=== PATIENT | female | born 1965 | race Two or more races ===

== ENCOUNTER 2022-05-30 11:05 | Emergency (ER) | payer OTHER ==
[~2022-05-30] VITALS: Ht 165.1 cm; Wt 98.9 kg
[2022-05-30] MEDS ORDERED: CYCLOBENZAPRINE10 MG PO (15:37)
[2022-05-30] MEDS ORDERED: NAPROXEN SODIU550 MG PO (15:37)
[2022-05-30] MEDS ORDERED: TRAMADOL HCL50 MG PO (15:37)
== END 2022-05-30 16:02 ==
LOC: ER 11:05
DX: M54.31 Sciatica, right side (principal); F41.0 Panic disorder [episodic paroxysmal anxiety]; Z88.8 Allergy status to other drugs, medicaments and biological substances